=== PATIENT | female | born 1965 | race Caucasian/White ===

== ENCOUNTER 2017-05-28 13:56 | Outpatient (CLI) | payer OTHER ==
--- NOTE | 2017-05-28 15:14 | MMO ---
MAMMOGRAM DIGITAL SCREENING BILATERAL: DATE: 05/28/17 HISTORY: 51-year-old female for routine bilateral screening mammogram. COMPARISON: 04/13/16, 04/05/15, and . TECHNIQUE: Digital mammographic views. Computer-aided detection (CAD) utilized. FINDINGS: The breasts are heterogeneously dense, which may obscure small masses. There is no evidence of suspicious mass, suspicious calcifications, or architectural distortion. Th ere is no significant interval change since the prior mammogram. IMPRESSION: 1) BIRADS 1 - Negative. 2) Recommendation: routine bilateral annual screening mammogram (unless the patient develops suspici ous clinical findings that would warrant earlier imaging follow up). jessica [] POS: JAM
== END 2017-05-28 13:57 | disposition home or self-care (01) ==
LOC: MAMMO 13:56
PROVIDERS: ATTEND Obstetrics & Gynecology
DX: Z12.31 Encounter for screening mammogram for malignant neoplasm of breast (principal)
CPT/HCPCS: 77067; G0202

== ENCOUNTER 2017-11-17 20:36 | Emergency (ER) | payer OTHER ==
[~2017-11-17 20:36] MED LIST: ISOVUE-370 76%-LOCM 1 ML ONE
[2017-11-17] MEDS ORDERED: Acetaminophen 500 MG TAB ONE (21:53)
[2017-11-17 21:56] LABS: ALT (SGPT) 7 U/L (8-55); AST (SGOT) 12 U/L (5-34); Albumin 3.6 g/dL (3.5-5.0); Alkaline Phosphatase 100 U/L (40-150); Anion Gap 14 mmol/L (10-20); BUN (Urea Nitrogen) 15 mg/dL (9.8-20.1); Bilirubin, Total Less than 0.2 mg/dL (0.2-1.2); Calc. Creatinine Clearance 0 mL/min (70-130); Carbon Dioxide 26 mmol/L (22-29); Chloride 103 mmol/L (98-107); Estimated GFR-MDRD 84; Globulin 3.1 g/dL (2.4-3.5); Glucose 91 mg/dL (70-105); Magnesium 1.7 mg/dL (1.6-2.6); Protein, Total 6.7 g/dL (6.0-8.3); Sodium 140 mmol/L (136-145)
[2017-11-17 21:58] LABS: CKMB 1.9 ng/mL (0-6.6); Troponin I Less than 0.010 ng/mL (< 0.028)
[2017-11-17 22:02] LABS: Eosinophils 2 % (0-10); Lymphocytes 36 % (21-51); MDiff Complete? YES; Mean Corpuscular HGB CONC 35.6 g/dL (32.0-36.0); Mean Corpuscular Hemoglobin 31.1 pg (27.0-31.0); Mean Corpuscular Volume 87.4 fl (81.0-99.0); Mean Platelet Volume 6.9 fL (7.4-10.4); Metamyelocyte 1 % (0-0); Monocytes 3 % (0-10); Neutrophil 55 % (42-75); Nucleated RBC 1 % (0); PLT Morphology Comment Appears Increased; Platelet Count 423 thou/uL (130-400); RBC Distribution Width 11.5 % (11.5-14.5); RBC Morphology Normal; Reactive Lymphocytes 3 % (0-10); Red Blood Cell (RBC) Count 4.16 mill/uL (4.20-5.40); White Blood Cell (WBC) Count 19.3 thou/uL (4.8-10.8)
[2017-11-17] MEDS ORDERED: Potassium Chloride 20 MEQ TAB ONE (22:12)
--- NOTE | 2017-11-17 22:37 | RAD ---
RADIOGRAPH CHEST 1 VIEW: 11/17/17 HISTORY: 52-year-old female with cough. FINDINGS: There are no air space densities, pulmonary edema, pneumothorax, or cardiomegaly. The lateral costop hrenic angles are sharp. IMPRESSION: No acute cardiopulmonary findings. jessica [] POS: JAM
[2017-11-18 00:56] LABS: CKMB 1.9 ng/mL (0-6.6); Troponin I Less than 0.010 ng/mL (< 0.028)
[2017-11-18 02:04] LABS: Bilirubin Negative (Negative); Blood, Urine Negative (Negative); Clarity CLEAR (Clear); Glucose, Urine (Dipstick) Negative (Negative); Leukocyte Negative (Negative); Nitrite Negative (Negative); Protein, Urine (Dipstick) Negative (Neg-Trace); Specific Gravity, Urine 1.013 (1.002-1.036); Urobilinogen 0.2 mg/dL (0.2-1.0)
--- NOTE | 2017-11-18 08:20 | CT ---
PRELIMINARY REPORT/[facility]/EMERGENCY AFTER HOURS PROCEDURE: EXAM: CT Angiography Chest With Intravenous Contrast CLINICAL HISTORY: 52 years old, female; Signs and symptoms; Cough; Cough with hemorrhage; Patient HX: 52 yo wf pmh HTN. Presents at request of pcp for abnormal lab values. Patient and family believe it was low potassium and elevated white count. States she has had a chronic cough for roughly 1 year. Has been evaluated o utpatient with no findings. Denies recent travel, incarceration, or homelessness. Reports coughing bl ood over the past 2-3 weeks. Denies recent change in medications TECHNIQUE: Axial computed tomographic angiography images of the chest with intravenous contrast using pulmonary embolism protocol. All CT scans at this facility use one or more dose reduction techniques, viz.: aut omated exposure control; ma/kV adjustment per patient size (including targeted exams where dose is ma tched to indication; i.e. head); or iterative reconstruction technique. CONTRAST: 100 mL of iso 370 administered intravenously. COMPARISON: No relevant prior studies available. FINDINGS: Pulmonary arteries: No pulmonary embolism. Aorta: No acute findings. Lungs: Hazy groundglass and small consolidative opacities within the inferior aspect of the upper lob es bilaterally and within the right middle lobe, compatible with multifocal pneumonia. Pleural space: Normal. No significant effusion. No pneumothorax. Heart: Normal. Bones/joints: No acute fracture. No dislocation. Soft tissues: Normal. Lymph nodes: Normal. IMPRESSION: 1. No pulmonary embolism. 2. Hazy groundglass and small consolidative opacities within the inferior aspect of the upper lobes b ilaterally and within the right middle lobe, compatible with multifocal pneumonia. Thank you for allowing us to participate in the care of your patient. Dictated and Authenticated by: Rohit Hernandez MD 11/18/2017 1:46 AM Central Time ([place] & [place]) FINAL REPORT EMERGENCY AFTER HOURS CT ANGIOGRAM THORAX WITH IV CONTRAST AND 3D RECONSTRUCTIONS: Date: 11/18/17 HISTORY: Abnormal lab values, hypertension, chest pain. Patient has had chronic cough for 1 year. IMPRESSION: 1. Consolidation right middle lobe with adjacent patchy densities, as well as a few patchy densities in the upper lobes bilaterally, including reticulonodular densities in the anteromedial left upper l obe, most compatible with multifocal pneumonia. Atypical pneumonia cannot be entirely excluded.No joanna dence of pulmonary embolus. 2. Thoracic aorta is normal in caliber without evidence of an aortic dissection. 3. Upper limits of normal to borderline cardiomegaly. 4. No evidence of pulmonary embolus. Findings are in agreement with the preliminary report by [facility]. POS: JAM
--- NOTE | 2017-11-19 11:57 | EKG ---
Test Reason : Blood Pressure : / mmHG Vent. Rate : 099 BPM Atrial Rate : 099 BPM P-R Int : 110 ms QRS Dur : 084 ms QT Int : 372 ms P-R-T Axes : 057 -16 000 degrees QTc Int : 477 ms Sinus rhythm with short WI Nonspecific ST and T wave abnormality Prolonged QT Abnormal ECG Confirmed by KEVIN VAZQUEZ M.D. ([id number]), state editor MARK GARCIA ([id number] on 11/19/2017 11:56:21 AM Referred By: Confirmed By:KEVIN VAZQUEZ M.D.
== END 2017-11-18 02:36 | disposition home or self-care (01) ==
LOC: ERS 20:36
DX: J18.9 Pneumonia, unspecified organism (principal); I10 Essential (primary) hypertension; Z79.899 Other long term (current) drug therapy
CPT/HCPCS: 36415; 71045; 71046; 71275; 81003; 82553; 83735; 84484; 85379; 85610; 93005; 96360

== ENCOUNTER 2017-12-02 12:29 | Outpatient (CLI) | payer OTHER ==
--- NOTE | 2017-12-02 13:43 | ULT ---
BILATERAL LOWER EXTREMITY VENOUS DOPPLER ULTRASOUND: Date: 12/02/17 HISTORY: Bilateral leg pain. TECHNIQUE: Rao scale ultrasound with color flow and spectral Doppler imaging of the deep venous systems of the lower extremities was performed bilaterally. FINDINGS: There is good flow, compression, and augmentation noted in the common femoral, femoral, deep femoral, popliteal, and greater saphenous veins on either side. IMPRESSION: No evidence of deep venous thrombosis in either lower extremity. POS: JAM
--- NOTE | 2017-12-02 15:25 | ULT ---
BILATERAL LOWER EXTREMITY ARTERIAL DOPPLER EVALUATIO WITH SPECTRAL ANALYSIS AND COLOR FLOW EVALUATION . DATE: 12/02/17. HISTORY: Bilateral leg cramps, mainly at night. FINDINGS: Rao scale, color flow, Doppler evaluation, and spectral analysis of the bilateral lower extremity ar terial vessels are performed with 2D imaging. There are triphasic waveforms seen within the bilateral common femoral, profunda femoral, superficial femoral, and popliteal arteries with triphasic waveform seen in the left lower extremity anterior an d posterior tibial and in the right lower extremity posterior tibial arteries. There are biphasic waveforms seen in the right lower extremity anterior tibial and dorsalis pedis art eries as well as in the left lower extremity dorsalis pedis artery. Although there is a triphasic waveform seen within the left common femoral artery, there is an elevat ed peak systolic velocity which is asymmetric compared to the contralateral right side and significan t stenosis in the left common femoral artery cannot be entirely excluded. Velocity measures are othe rwise symmetric between the lower extremity arterial vessels bilaterally. IMPRESSION: 1. Mild atherosclerotic vascular disease lower extremity tibioperoneal vessels and dorsalis pedis ar teries as described above, but the velocity measurements are overall symmetric within the distal lowe r extremities. 2. Nonspecific elevated peak systolic velocity in the left common femoral artery and, although there is a triphasic waveform, the asymmetric peak systolic velocity measurement suggests the possibility of a stenosis in the left common femoral artery. POS: JAM
== END 2017-12-02 12:30 | disposition home or self-care (01) ==
LOC: ULT 12:29
PROVIDERS: ATTEND Nurse Practitioner Family
DX: M79.604 Pain in right leg (principal); M79.605 Pain in left leg; J18.9 Pneumonia, unspecified organism; E87.6 Hypokalemia; R79.89 Other specified abnormal findings of blood chemistry; R05 Cough; R04.2 Hemoptysis; R53.82 Chronic fatigue, unspecified; R51 Headache; I10 Essential (primary) hypertension; I70.201 Unspecified atherosclerosis of native arteries of extremities, right leg
CPT/HCPCS: 93923; 93970

== ENCOUNTER 2017-12-31 13:49 | Outpatient (CLI) | payer OTHER ==
[2017-12-31] MEDS ORDERED: ISOVUE-370 76%-LOCM 1 ML ONE (20:21)
== END 2017-12-31 13:50 | disposition home or self-care (01) ==
LOC: BICCT 13:49
PROVIDERS: ATTEND Nurse Practitioner Family
DX: J18.9 Pneumonia, unspecified organism (principal); R05 Cough; R93.8 Abnormal findings on diagnostic imaging of other specified body structures; J98.11 Atelectasis
CPT/HCPCS: 71260

== ENCOUNTER 2018-06-10 13:09 | Outpatient (CLI) | payer OTHER | END 2018-06-10 13:10 | disposition home or self-care (01) | LOC: BICMAMMO 13:09 | PROVIDERS: ATTEND Obstetrics & Gynecology | DX: Z12.31 Encounter for screening mammogram for malignant neoplasm of breast (principal); R92.1 Mammographic calcification found on diagnostic imaging of breast | CPT/HCPCS: 77063; 77067 ==

== ENCOUNTER 2018-07-15 14:13 | Outpatient (CLI) | payer OTHER ==
[~2018-07-15 14:13] MED LIST changes: -ISOVUE-370 76%-LOCM 1 ML ONE; +Iopamidol 370 76% 100 ML VIAL ONE
--- NOTE | 2018-07-15 16:06 | CT ---
CT ABDOMEN AND PELVIS WITH IV AND ORAL CONTRAST 07/15/18 HISTORY: Abdominal pain. Belching. COMPARISON: 05/14/16. FINDINGS: The lung bases are clear. The liver, spleen, kidneys, adrenal glands and pancreas have a normal CT ap pearance. No enlarged lymph nodes or free fluid. The appendix is not inflated. Urinary bladder is inc ompletely distended. The uterus is surgically absent. IMPRESSION: No significant abnormalities are demonstrated. POS: FERNANDO
== END 2018-07-15 14:14 | disposition home or self-care (01) ==
LOC: BICCT 14:13
PROVIDERS: ATTEND Nurse Practitioner Family
DX: R10.13 Epigastric pain (principal); R10.32 Left lower quadrant pain; R14.0 Abdominal distension (gaseous); K59.09 Other constipation; N39.0 Urinary tract infection, site not specified; R10.9 Unspecified abdominal pain; K63.9 Disease of intestine, unspecified; B96.81 Helicobacter pylori [H. pylori] as the cause of diseases classified elsewhere
CPT/HCPCS: 74177

== ENCOUNTER 2019-11-13 07:34 | Outpatient (CLI) | payer OTHER ==
--- NOTE | 2019-11-13 12:03 | NM ---
NUCLEAR MEDICINE GASTRIC EMPTYING EVALUATION: Date: 11/13/2019 INDICATION: Abdominal distention. RADIOPHARMACEUTICAL: 1.9 mCi technetium-99m sulfur colloid orally in eggs. FINDINGS: The percent emptying at 30 minutes was 48%. There was 76% emptying at 1 hour time [place]. There was 96% emptying at 2 hour time [place]. There was 100% emptying at 3 hour time [place]. T-1/2 was 30 minutes. IMPRESSION: Normal gastric emptying evaluation. POS: BH
== END 2019-11-13 07:35 | disposition home or self-care (01) ==
LOC: NM 07:34
PROVIDERS: ATTEND Internal Medicine
DX: R10.10 Upper abdominal pain, unspecified (principal); R14.0 Abdominal distension (gaseous)
CPT/HCPCS: 78264; A9541

== ENCOUNTER 2020-05-16 07:24 | Outpatient (CLI) | payer OTHER ==
--- NOTE | 2020-05-16 09:31 | CT ---
CT CHEST AND ABDOMEN AND PELVIS WITH IV CONTRAST: INDICATION: Mass of colon left lower quadrant pain. FINDINGS: CT CHEST: The lung cooper are clear. No infiltrate or effusion. No evidence of pulmonary mass or nodule. The mediastinum is unremarkable. No adenopathy. Nonspecific axillary lymph nodes. Osseous structur es unremarkable. IMPRESSION: Unremarkable CT chest. CT ABDOMEN AND PELVIS: Comparison is made to a CT abdomen and pelvis dated 07/15/2018. The liver, spleen, and pancreas are unremarkable. The stomach and duodenum are unremarkable. Adrenal glands normal. Kidneys unremarkable. Small bowel loops normal. Appendix appears normal. Colon unremarkable. Images through the pelvis s how evidence of hysterectomy. The urinary bladder is mostly contracted. Aorta normal caliber. No adenopathy or mass. No free fluid. IMPRESSION: Unremarkable CT abdomen and pelvis. POS: AGW
== END 2020-05-16 07:25 | disposition home or self-care (01) ==
LOC: BICCT 07:24
PROVIDERS: ATTEND Nurse Practitioner Family
DX: K21.0 Gastro-esophageal reflux disease with esophagitis (principal); N39.0 Urinary tract infection, site not specified; R10.32 Left lower quadrant pain; R14.0 Abdominal distension (gaseous); R10.9 Unspecified abdominal pain; K59.09 Other constipation; K63.89 Other specified diseases of intestine; B96.81 Helicobacter pylori [H. pylori] as the cause of diseases classified elsewhere; R53.82 Chronic fatigue, unspecified; I70.202 Unspecified atherosclerosis of native arteries of extremities, left leg; E78.00 Pure hypercholesterolemia, unspecified; D72.829 Elevated white blood cell count, unspecified; E78.5 Hyperlipidemia, unspecified; D50.8 Other iron deficiency anemias; Q64.9 Congenital malformation of urinary system, unspecified; I10 Essential (primary) hypertension; E55.9 Vitamin D deficiency, unspecified; Z90.49 Acquired absence of other specified parts of digestive tract; R10.13 Epigastric pain; B37.9 Candidiasis, unspecified; D47.3 Essential (hemorrhagic) thrombocythemia
CPT/HCPCS: 71260; 74177

== ENCOUNTER 2020-09-06 13:46 | Outpatient (CLI) | payer OTHER ==
--- NOTE | 2020-09-06 14:19 | BD ---
BONE DENSITOMETRY: INDICATION: Postmenopausal screening. FINDINGS: Lumbar Spine: BMD (g/cm2) L1 0.872 T-Score: -1.1 L2 0.960 T-Score: -0.6 L3 1.000 T-Score: -0.8 L4 1.039 T-Score: -0.2 L1-L4 0.967 T-Score: -0.7 Femoral Neck: 0.743 T-Score: -1.0 Impression: Bone mineral density of the lumbar spine and femoral neck are both within normal range. POS: AH
== END 2020-09-06 13:47 | disposition home or self-care (01) ==
LOC: BICMAMMO 13:46
PROVIDERS: ATTEND Obstetrics & Gynecology
DX: Z13.820 Encounter for screening for osteoporosis (principal)
CPT/HCPCS: 77080

== ENCOUNTER 2021-04-21 08:06 | Outpatient (CLI) | payer OTHER ==
[2021-04-21] MEDS ORDERED: Iopamidol 370 76% 100 ML VIAL ONE (15:04)
== END 2021-04-21 08:07 | disposition home or self-care (01) ==
LOC: CT 08:06
PROVIDERS: ATTEND Internal Medicine Hematology & Oncology
DX: R10.9 Unspecified abdominal pain (principal); R63.4 Abnormal weight loss; D50.0 Iron deficiency anemia secondary to blood loss (chronic)
CPT/HCPCS: 74177; Q9967

== ENCOUNTER 2021-05-16 13:00 | Outpatient (CLI) | payer OTHER | END 2021-05-16 13:01 | disposition home or self-care (01) | LOC: NM 13:00 | PROVIDERS: ATTEND Physician Assistant Medical | DX: K59.00 Constipation, unspecified (principal); R63.4 Abnormal weight loss; R10.10 Upper abdominal pain, unspecified | CPT/HCPCS: 78227; A9537 ==

== ENCOUNTER 2021-12-19 08:02 | Outpatient (CLI) | payer BC | END 2021-12-19 08:03 | disposition home or self-care (01) | LOC: RAD 08:02 | PROVIDERS: ATTEND Internal Medicine Critical Care Medicine | DX: R06.00 Dyspnea, unspecified (principal) | CPT/HCPCS: 71046 ==

== ENCOUNTER 2022-01-04 16:05 | Emergency (ER) | payer BC ==
[~2022-01-04 16:05] MED LIST changes: -Iopamidol 370 76% 100 ML VIAL ONE; +Iopamidol-370 76% 500 ML 1 ML ONE
[2022-01-04] MEDS ORDERED: Morphine 4 MG/ML VIAL ONE (16:42)
[2022-01-04] MEDS ORDERED: Ondansetron PF 4 MG/2 ML Vial ONE ×2 (16:42→16:49)
[2022-01-04 16:43] LABS: #Lymphocytes 0.9 thou/uL (1.20-3.40); #Monocytes 0.3 thou/uL (0.11-0.59); #Neutrophils 8.7 thou/uL (1.40-6.50); %Basophils 0.1 % (0.0-1.0); %Eosinophils 0.2 % (0.0-10.0); %Lymphocytes 8.7 % (21.0-51.0); Hemoglobin 14.7 g/dL (12.0-16.0); Mean Corpuscular HGB CONC 34.5 g/dL (32.0-36.0); Mean Corpuscular Hemoglobin 31.4 pg (27.0-31.0); Mean Platelet Volume 6.9 fL (7.4-10.4); Platelet Count 323 thou/uL (130-400); Red Blood Cell (RBC) Count 4.68 mill/uL (4.20-5.40); White Blood Cell (WBC) Count 9.9 thou/uL (4.8-10.8)
[2022-01-04 16:48] LABS: Bacteria/HPF Rare-Few HPF (None Seen); Bilirubin Negative (Negative); Blood, Urine Negative (Negative); Clarity Clear (Clear); Glucose, Urine (Dipstick) Normal (Negative); Ketone, Urine 10 mg/dL (Negative); Leukocyte Negative Leu/uL (Negative); Nitrite Negative (Negative); Protein, Urine (Dipstick) 30 mg/dL (Neg-Trace); RBC/HPF 0-3 HPF (0-3); Specific Gravity, Urine 1.041 (1.002-1.036); WBC/HPF 0-3 HPF (0-3); pH, Urine 6.5 (5.0-9.0)
[2022-01-04 17:06] LABS: ALT (SGPT) 18 U/L (8-55); AST (SGOT) 21 U/L (5-34); Albumin 3.9 g/dL (3.5-5.0); Alkaline Phosphatase 77 U/L (40-110); Anion Gap 16 mmol/L (10-20); BUN (Urea Nitrogen) 16 mg/dL (9.8-20.1); Bilirubin, Total 0.5 mg/dL (0.2-1.2); Calc. Creatinine Clearance 0 mL/min (70-130); Calcium 8.9 mg/dL (7.8-10.44); Carbon Dioxide 23 mmol/L (22-29); Chloride 102 mmol/L (98-107); Globulin 2.8 g/dL (2.4-3.5); Glucose 106 mg/dL (70-105); Lipase 15 U/L (8-78); Potassium 3.4 mmol/L (3.5-5.1); Protein, Total 6.7 g/dL (6.0-8.3); Sodium 138 mmol/L (136-145)
[2022-01-04] MEDS ORDERED: Fentanyl 100 MCG/2 ML VIAL ONE (17:46)
== END 2022-01-04 18:52 | disposition home or self-care (01) ==
LOC: ERS 16:05
DX: R11.2 Nausea with vomiting, unspecified (principal); I10 Essential (primary) hypertension; Z79.899 Other long term (current) drug therapy
CPT/HCPCS: 74177; 80053; 81003; 81015; 83690; 85025; 96374; 96375; J2270; J2405; J3010; Q9967

== ENCOUNTER 2022-03-13 13:31 | Outpatient (CLI) | payer BC ==
[2022-03-13 15:04] LABS: Anion Gap 12 mmol/L (10-20); BUN (Urea Nitrogen) 12 mg/dL (9.8-20.1); Calc. Creatinine Clearance 0 mL/min (70-130); Calcium 9.2 mg/dL (7.8-10.44); Carbon Dioxide 31 mmol/L (22-29); Chloride 98 mmol/L (98-107); Estimated GFR 95; Glucose 137 mg/dL (70-105); Potassium 3.4 mmol/L (3.5-5.1); Sodium 138 mmol/L (136-145)
== END 2022-03-13 13:32 | disposition home or self-care (01) ==
LOC: LABBT 13:31
PROVIDERS: ATTEND Neurological Surgery
DX: Z01.818 Encounter for other preprocedural examination (principal); M54.12 Radiculopathy, cervical region; Z20.822 Contact with and (suspected) exposure to COVID-19
CPT/HCPCS: 80048; 87811; 93005; 93010

== ENCOUNTER 2022-03-18 07:32 | Day surgery (SDC) | payer BC ==
[2022-03-16 10:54] VITALS: BMI 25.4
[2022-03-18] MEDS ORDERED: CEFAZOLIN 2 GM VIAL ONE ×2 (08:31→12:50)
[2022-03-18] MEDS ORDERED: Sodium Chloride 0.9% 100 ML ONE ×2 (08:31→12:50)
[2022-03-18] MEDS ORDERED: fentaNYL Citrate/PF 100 MCG/2 ML SYRINGE ONE ×2 (08:39→10:30)
[2022-03-18] MEDS ORDERED: Dexamethasone 20 MG/5 ML VIAL ONE (09:27)
[2022-03-18] MEDS ORDERED: PROPOFOL 200 MG/20 ML VIAL ONE (09:27)
[2022-03-18] MEDS ORDERED: Ondansetron PF 4 MG/2 ML Vial ONE (09:27)
[2022-03-18] MEDS ORDERED: Rocuronium Bromide 10 MG/ML (10ML VIAL) ONE (09:27)
[2022-03-18] MEDS ORDERED: Lidocaine 1% PF 5 ML VIAL ONE (09:27)
[2022-03-18] MEDS ORDERED: Glycopyrrolate 0.2 MG/ML 5 ML SYRINGE ONE (09:27)
[2022-03-18] MEDS ORDERED: HYDROcodone/Acetaminophen 5/325 mg Tablet ONE ×2 (11:11→11:34)
== END 2022-03-18 13:34 | disposition home or self-care (01) ==
LOC: SDC 07:32
PROVIDERS: ATTEND Neurological Surgery
PROC: 0RG10A0 Fusion of Cervical Vertebral Joint with Interbody Fusion Device, Anterior Approach, Anterior Column, Open Approach (ICD-10-PCS; principal; 2022-03-18)
DX: M50.122 Cervical disc disorder at C5-C6 level with radiculopathy (principal); M48.02 Spinal stenosis, cervical region; J45.909 Unspecified asthma, uncomplicated; I10 Essential (primary) hypertension; K21.9 Gastro-esophageal reflux disease without esophagitis; Z79.899 Other long term (current) drug therapy; Z88.5 Allergy status to narcotic agent
CPT/HCPCS: 76000; C1713; J0690; J1100; J2405; J2704; J2710; J3490

== ENCOUNTER 2022-03-31 18:11 | Emergency (ER) | payer BC ==
[2022-03-31 21:00] LABS: #Eosinphils 0.1 thou/uL (0.0-0.7); #Lymphocytes 4.9 thou/uL (1.20-3.40); #Monocytes 0.8 thou/uL (0.11-0.59); #Neutrophils 6.7 thou/uL (1.40-6.50); %Basophils 0.3 % (0.0-1.0); %Eosinophils 0.7 % (0.0-10.0); %Lymphocytes 39.2 % (21.0-51.0); %Monocytes 6.4 % (0.0-10.0); %Neutrophils 53.4 % (42.0-75.0); Hemoglobin 12.4 g/dL (12.0-16.0); Mean Corpuscular HGB CONC 34.5 g/dL (32.0-36.0); Mean Corpuscular Hemoglobin 31.3 pg (27.0-31.0); Mean Corpuscular Volume 90.7 fL (78.0-98.0); Platelet Count 364 thou/uL (130-400); RBC Distribution Width 10.8 % (11.5-14.5); Red Blood Cell (RBC) Count 3.96 mill/uL (4.20-5.40); White Blood Cell (WBC) Count 12.6 thou/uL (4.8-10.8)
[2022-03-31 21:21] LABS: ALT (SGPT) 12 U/L (8-55); AST (SGOT) 15 U/L (5-34); Albumin 3.7 g/dL (3.5-5.0); Alkaline Phosphatase 92 U/L (40-110); Anion Gap 12 mmol/L (10-20); BUN (Urea Nitrogen) 10 mg/dL (9.8-20.1); Bilirubin, Total 0.4 mg/dL (0.2-1.2); Calc. Creatinine Clearance 0 mL/min (70-130); Carbon Dioxide 30 mmol/L (22-29); Chloride 102 mmol/L (98-107); Estimated GFR 102; Globulin 2.9 g/dL (2.4-3.5); Glucose 90 mg/dL (70-105); Potassium 3.2 mmol/L (3.5-5.1); Protein, Total 6.6 g/dL (6.0-8.3); Sodium 141 mmol/L (136-145)
[2022-03-31 21:33] LABS: Bilirubin Negative (Negative); Blood, Urine Negative (Negative); Clarity Clear (Clear); Glucose, Urine (Dipstick) Normal (Negative); Ketone, Urine Negative (Negative); Leukocyte Negative Leu/uL (Negative); Nitrite Negative (Negative); Protein, Urine (Dipstick) Negative (Neg-Trace); Specific Gravity, Urine 1.004 (1.002-1.036); Urobilinogen Normal mg/dL (Less than 2); pH, Urine 6.5 (5.0-9.0)
== END 2022-03-31 22:37 | disposition home or self-care (01) ==
LOC: ERS 18:11
DX: R10.30 Lower abdominal pain, unspecified (principal); R10.814 Left lower quadrant abdominal tenderness; R10.813 Right lower quadrant abdominal tenderness; I10 Essential (primary) hypertension; Z79.899 Other long term (current) drug therapy
CPT/HCPCS: 36415; 74177; 80053; 81003; 85025; Q9967

== ENCOUNTER 2022-07-21 15:59 | Outpatient (CLI) | payer BC ==
[2022-07-21 16:37] LABS: #Eosinphils 0.1 10x3/uL (0.0-0.5); #Monocytes 0.6 10x3/uL (0.0-1.1); #Neutrophils 4.4 10x3/uL (1.5-8.4); %Basophils 0.3 % (0.0-2.0); %Lymphocytes 40.2 % (18.0-47.0); %Monocytes 6.9 % (0.0-10.0); %Neutrophils 51.1 % (40.0-75.0); Hemoglobin 13.4 g/dL (12.0-15.5); Mean Corpuscular HGB CONC 33.9 g/dL (32.0-36.0); Mean Corpuscular Hemoglobin 30.2 pg (27.0-33.0); Mean Corpuscular Volume 89.2 fl (81.6-98.3); Mean Platelet Volume 9.8 fl (7.4-10.4); Platelet Count 414 10x3/uL (150-450); RBC Distribution Width 12.3 % (11.5-14.5); Red Blood Cell (RBC) Count 4.43 10x6/uL (3.90-5.03); White Blood Cell (WBC) Count 8.7 10x3/uL (3.5-10.5)
[2022-07-21 16:52] LABS: ALT (SGPT) 22 U/L (8-55); AST (SGOT) 24 U/L (5-34); Albumin 4.3 g/dL (3.5-5.0); Alkaline Phosphatase 98 U/L (40-110); Anion Gap 13 mmol/L (10-20); BUN (Urea Nitrogen) 14 mg/dL (9.8-20.1); Bilirubin, Total 0.3 mg/dL (0.2-1.2); Calc. Creatinine Clearance 0 mL/min (70-130); Calcium 9.7 mg/dL (7.8-10.44); Carbon Dioxide 30 mmol/L (22-29); Chloride 101 mmol/L (98-107); Estimated GFR 79; Globulin 2.6 g/dL (2.4-3.5); Glucose 92 mg/dL (70-105); Potassium 3.6 mmol/L (3.5-5.1); Protein, Total 6.9 g/dL (6.0-8.3); Sodium 140 mmol/L (136-145)
== END 2022-07-21 16:00 | disposition home or self-care (01) ==
LOC: LABBT 15:59
PROVIDERS: ATTEND Surgery
DX: Z01.818 Encounter for other preprocedural examination (principal); K40.90 Unilateral inguinal hernia, without obstruction or gangrene, not specified as recurrent
CPT/HCPCS: 80053; 85025; 93005; 93010

== ENCOUNTER 2022-07-22 05:25 | Day surgery (SDC) | payer BC ==
[2022-07-20 13:52] VITALS: BMI 23.4
[2022-07-22] MEDS ORDERED: Midazolam HCl 2 mg/2 ml Vial ONE (06:19)
[2022-07-22] MEDS ORDERED: fentaNYL PF 100 MCG/2 ML SYRINGE ONE (06:19)
[2022-07-22] MEDS ORDERED: SUGAMMADEX SODIUM 200 MG/2 ML VIAL ONE (06:33)
[2022-07-22] MEDS ORDERED: Lidocaine 2% 6 ML SYR ONE (06:33)
[2022-07-22] MEDS ORDERED: PHENYLEPHRINE-NS 100 MCG/ML 10 ML SYRINGE ONE (06:33)
[2022-07-22] MEDS ORDERED: CEFAZOLIN 2 GM VIAL ONE (07:24)
[2022-07-22] MEDS ORDERED: Sodium Chloride 0.9% 100 ML ONE (07:24)
[2022-07-22] MEDS ORDERED: Bupivacaine/Epinephrine 0.25% 30 ML VIAL ONE (07:34)
[2022-07-22] MEDS ORDERED: FENTANYL 50 MCG/ML 1 ML VIAL ONE (08:47)
[2022-07-22] MEDS ORDERED: HYDROcodone/Acetaminophen 5/325 mg Tablet ONE (09:46)
== END 2022-07-22 10:17 | disposition home or self-care (01) ==
LOC: SDC 05:25
PROVIDERS: ATTEND Surgery
PROC: 0YU60JZ Supplement Left Inguinal Region with Synthetic Substitute, Open Approach (ICD-10-PCS; principal; 2022-07-22)
DX: K40.90 Unilateral inguinal hernia, without obstruction or gangrene, not specified as recurrent (principal); K21.9 Gastro-esophageal reflux disease without esophagitis; K59.09 Other constipation; I10 Essential (primary) hypertension; Z79.899 Other long term (current) drug therapy; Z88.5 Allergy status to narcotic agent; Z90.49 Acquired absence of other specified parts of digestive tract; Z90.710 Acquired absence of both cervix and uterus; Z98.1 Arthrodesis status
CPT/HCPCS: C1781; J2250; J3010; J3490

== ENCOUNTER 2022-10-21 06:59 | Day surgery (SDC) | payer BC ==
[2022-10-20 12:31] VITALS: BMI 23.4
[2022-10-21] MEDS ORDERED: Lidocaine 1% (PF) 30 ML VIAL ONE (09:25)
[2022-10-21] MEDS ORDERED: Heparin 10,000 UNITS/ 10 ML VIAL ONE (09:25)
[2022-10-21] MEDS ORDERED: FENTANYL 50 MCG/ML 1 ML VIAL ONE (09:34)
[2022-10-21] MEDS ORDERED: Midazolam HCl 2 mg/2 ml Vial ONE (09:34)
[2022-10-21] MEDS ORDERED: Verapamil 5 MG/2 ML VIAL ONE (09:42)
[2022-10-21] MEDS ORDERED: Nitroglycerin 100MG/250ML BOT 250 ML ONE (09:42)
== END 2022-10-21 13:23 | disposition home or self-care (01) ==
LOC: SDC 06:59
PROVIDERS: ATTEND Internal Medicine Cardiovascular Disease
PROC: 4A023N7 Measurement of Cardiac Sampling and Pressure, Left Heart, Percutaneous Approach (ICD-10-PCS; principal; 2022-10-21)
PROC: B2111ZZ Fluoroscopy of Multiple Coronary Arteries using Low Osmolar Contrast (ICD-10-PCS; principal; 2022-10-21)
DX: R07.89 Other chest pain (principal); I10 Essential (primary) hypertension; I47.1 Supraventricular tachycardia; Z79.899 Other long term (current) drug therapy; Z88.5 Allergy status to narcotic agent
CPT/HCPCS: 93458; 99152; 99153; C1769; J1644; J2001; J2250; J3010

== ENCOUNTER 2023-09-24 12:49 | Outpatient (CLI) | payer BC | END 2023-09-24 12:50 | disposition home or self-care (01) | LOC: SCSMRI 12:49 | PROVIDERS: ATTEND Nurse Practitioner Family | DX: M54.42 Lumbago with sciatica, left side (principal); R10.32 Left lower quadrant pain; R20.2 Paresthesia of skin; M48.061 Spinal stenosis, lumbar region without neurogenic claudication; M47.816 Spondylosis without myelopathy or radiculopathy, lumbar region | CPT/HCPCS: 72148 ==

== ENCOUNTER 2024-01-07 14:36 | Outpatient (CLI) | payer BC | END 2024-01-07 14:37 | disposition home or self-care (01) | LOC: ULT 14:36 | PROVIDERS: ATTEND Nurse Practitioner Family | DX: R59.0 Localized enlarged lymph nodes (principal) | CPT/HCPCS: 76536 ==

== ENCOUNTER 2024-01-21 12:25 | Outpatient (CLI) | payer BC | END 2024-01-21 12:26 | disposition home or self-care (01) | LOC: CT 12:25 | PROVIDERS: ATTEND Specialist | DX: R13.10 Dysphagia, unspecified (principal) | CPT/HCPCS: 70491 ==